=== PATIENT | male | born 1990 | race Caucasian/White ===

== ENCOUNTER 2019-12-04 04:09 | Emergency (ER) | payer OTHER, SELFPAY ==
[2019-12-04 04:10] VITALS: BP 130/70; PULSE 80; RESP 20; TEMP 37.1; O2SAT 98
[2019-12-04 04:40] LABS: Add Urine Microscopic? YES; Appearance Urine Sl Cloudy (Clear); Bilirubin Urine Negative (Negative); Blood Urine 1+ (Negative); Color Urine Yellow (Yellow); Glucose Urine UA Negative (Negative); Ketones Urine Trace (Negative); Leukocyte Esterase Ur 1+ LEU/UL (Negative); Nitrate Urine Negative (Negative); Protein Urine Trace (Negative); Specific Grav Ur >= 1.030 (1.010-1.020); Urobilinogen Urine 0.2 mg/dL (0.2-1.0)
[2019-12-04 04:46] LABS: Bacteria Urine 1+ /hpf; Squamous Epithelial Cell Urine Few /hpf (Few); WBC Urine 16-20 /hpf (0-3)
--- NOTE | 2019-12-04 05:05 | ED.MALEGU ---
HPI - Male Genitourinary General Chief complaint: Urogenital-Male Stated complaint: URINE RETENTION Source: patient History of Present Illness HPI Narrative: 28-year-old male presents with dysuria, burning and hesitancy with no high risk sexual activity currently no suprapubic tenderness no flank tenderness no fever or chills no nausea vomiting no diarrhea constipation. Complaint: dysuria Onset (ago): day(s) Duration: constant Severity: moderate Quality: burning Relieving factors: none Exacerbating factors: none Associated symptoms: Reports dysuria Related Data Home Medications Medication Instructions Recorded Confirmed buprenorphine-naloxone 1 tablet SUBLINGUAL DAILY 12/04/19 12/04/19 Allergies Allergy/AdvReac Type Severity Reaction Status Date / Time No Known Allergies Allergy Verified 12/04/19 04:41 Review of Systems Review of Systems: All systems reviewed & are unremarkable except as noted in HPI and below PMFSH Past Medical History Medical History Patient denies medical problems Exam Const: General: no acute distress and alert Orientation/consciousness: oriented to person and patient oriented x3 HENMT: Head: normal to inspection Eyes: Conjunctivae: conjunctivae normal Neck: Neck: normal visual inspection and no lymphadenopathy Chest: Chest palpation & inspection: normal inspection of the chest Resp: Effort & Inspection: normal respiratory effort Cardio: Rate: regular rate Rhythm: regular rhythm GI: GI Palp: Yes Soft to palpation : Testes: Testes normal Urinary Catheter: Urinary Catheter: urine clear Back/Spine/Pelvis: Back: no CVA tenderness Skin: General skin exam: normal color Rashes: no rashes Neuro: General: patient oriented x3 Extrem: General: normal to inspection Psych: Mental Status: mental status grossly normal Course Vital Signs Vital signs: Vital Signs Temperature 37.1 C 12/04/19 04:10 Pulse Rate 80 12/04/19 04:10 Respiratory Rate 20 12/04/19 04:10 Blood Pressure 130/70 12/04/19 04:10 Pulse Oximetry 98 12/04/19 04:10 Temperature 37.1 C 12/04/19 04:10 Pulse Rate 80 12/04/19 04:10 Respiratory Rate 20 12/04/19 04:10 Blood Pressure 130/70 12/04/19 04:10 Pulse Oximetry 98 12/04/19 04:10 MDM - Male Genitourinary Lab Data Labs: Lab Results 12/04/19 Range/Units 04:36 Urine Color Yellow (Yellow) Urine Appearance Sl cloudy A (Clear) Urine pH 6.0 (5.0-8.0) Ur Specific [place] >= 1.030 H (1.010-1.020) Urine Protein Trace H (Negative) Urine Glucose (UA) Negative (Negative) Urine Ketones Trace H (Negative) Ur Blood (Man) 1+ H (Negative) Urine Nitrate Negative (Negative) Urine Bilirubin Negative (Negative) Urine Urobilinogen 0.2 (0.2-1.0) mg/dL Leukocyte Esterase Rfl 1+ H (Negative) MIKAL/UL Urine RBC 3-5 H (0-2) /hpf Urine WBC 16-20 H (0-3) /hpf Ur Squamous Epith Cells Few (Few) /hpf Urine Bacteria 1+ H (None) /hpf Urine Characteristics Cloudy Critical Care Time Critical Care Time Critical Care Time: No Discharge Plan Discharge Clinical Impression: UTI (urinary tract infection) Patient Disposition: Home, Self-Care Condition: Stable Instructions: Antibiotic Form, Urinary Tract Infection in Men (ED) Additional Instructions: Return emergency department if unable to pass urine, take medicine as prescribed otherwise keep scheduled appointment with primary care physician for further evaluation and treatment. Prescriptions: New sulfamethoxazole-trimethoprim [Bactrim DS] 800-160 mg tablet 1 tablet PO Q12H Qty: 14 RF: 0 tamsulosin [Flomax] 0.4 mg capsule 0.4 mg PO DAILY Qty: 7 RF: 0 No Action buprenorphine-naloxone 8-2 mg tablet, sublingual 1 tablet SUBLINGUAL DAILY RF: 0 Follow-up/Referrals: UNKNOWN,DOCTOR [Primary Care Provider] - Ti
== END 2019-12-04 05:12 | disposition home or self-care (01) ==
PROVIDERS: Emergency Provider Emergency Medicine
DX: N39.0 Urinary tract infection, site not specified (principal)
CPT/HCPCS: 81001; 87086; 87088; 99283

== ENCOUNTER 2020-08-16 17:44 | Emergency (ER) | payer OTHER, SELFPAY ==
[2020-08-16 18:06] VITALS: BP 127/79; PULSE 82; RESP 20; TEMP 36.7; O2SAT 100
[2020-08-16 18:09] LABS: Add Urine Microscopic? NO; Appearance Urine Clear (Clear); Bilirubin Urine Negative (Negative); Blood Urine Negative (Negative); Color Urine Yellow (Yellow); Glucose Urine UA Negative (Negative); Ketones Urine Negative (Negative); Leukocyte Esterase Ur Negative LEU/UL (Negative); Nitrate Urine Negative (Negative); Protein Urine Negative (Negative); Urobilinogen Urine 0.2 mg/dL (0.2-1.0)
--- NOTE | 2020-08-16 18:16 | ED.MALEGU ---
HPI - Male Genitourinary General Chief complaint: Urogenital-Male Stated complaint: trouble/pain urinating Source: patient Mode of arrival: ambulatory Limitations: no limitations History of Present Illness HPI Narrative: this is a 29-year-old male with dysuria and suprapubic tenderness with no hematuria no fever chills no flank pain no nausea vomiting, denies any chest pain or shortness of breath no suprapubic tenderness. No high risk sexual activity contacts. Complaint: dysuria Onset (ago): day(s) Duration: constant Severity: moderate Quality: burning Related Data Home Medications Medication Instructions Recorded Confirmed buprenorphine-naloxone 1 tablet SUBLINGUAL DAILY 12/04/19 12/04/19 Allergies Allergy/AdvReac Type Severity Reaction Status Date / Time No Known Allergies Allergy Verified 08/16/20 18:12 Review of Systems Review of Systems: All systems reviewed & are unremarkable except as noted in HPI and below PMFSH Past Medical History Medical History (Updated 08/16/20 @ 18:18 by Dennys Li MD) Patient denies medical problems Social History Social History Gender identity (if verbalized by the patient): Male Exam Const: General: no acute distress HENMT: Head: normal to inspection Eyes: Pupils: Equal, round and reactive pupils present Neck: Neck: normal visual inspection Chest: Chest palpation & inspection: normal inspection of the chest Resp: Effort & Inspection: normal respiratory effort Auscultation: clear to auscultation bilaterally Cardio: Rate: regular rate Rhythm: regular rhythm GI: GI Palp: Yes Soft to palpation : Male General Exam: Yes normal external exam Urinary Catheter: Urinary Catheter: patent and draining Back/Spine/Pelvis: Back: no CVA tenderness Skin: General skin exam: normal color Rashes: no rashes Neuro: General: patient oriented x3, moves all extremities, no meningeal signs and no focal motor deficits Extrem: General: normal to inspection and no pedal edema Psych: Appearance: grossly normal Mental Status: mental status grossly normal Affect: normal affect Course Course Emergency Course: Reviewed UA with patient and UA showed no active urinary tract infection, explained that possibility of prostatitis and will start the patient on Bactrim and advised to follow with his primary care doctor. Vital Signs Vital signs: Vital Signs Temperature 36.7 C 08/16/20 18:06 Pulse Rate 82 08/16/20 18:06 Respiratory Rate 20 08/16/20 18:06 Blood Pressure 127/79 08/16/20 18:06 Pulse Oximetry 100 08/16/20 18:06 Temperature 36.7 C 08/16/20 18:06 Pulse Rate 82 08/16/20 18:06 Respiratory Rate 20 08/16/20 18:06 Blood Pressure 127/79 08/16/20 18:06 Pulse Oximetry 100 08/16/20 18:06 MDM - Male Genitourinary Lab Data Labs: Lab Results 08/16/20 Range/Units 18:05 Urine Color Yellow (Yellow) Urine Appearance Clear (Clear) Urine pH 7.0 (5.0-8.0) Ur Specific [place] 1.020 (1.010-1.020) Urine Protein Negative (Negative) Urine Glucose (UA) Negative (Negative) Urine Ketones Negative (Negative) Ur Blood (Man) Negative (Negative) Urine Nitrate Negative (Negative) Urine Bilirubin Negative (Negative) Urine Urobilinogen 0.2 (0.2-1.0) mg/dL Leukocyte Esterase Rfl Negative (Negative) MIKAL/UL Critical Care Time Critical Care Time Critical Care Time: No Discharge Plan Discharge Clinical Impression: Prostatitis Patient Disposition: Home, Self-Care Condition: Stable Instructions: Antibiotic Form, Prostatitis (ED) Additional Instructions: Take medicine as prescribed and follow-up with primary care physician within 1 to 2 weeks for further evaluation and treatment. Prescriptions: New sulfamethoxazole-trimethoprim [Bactrim DS] 800-160 mg tablet 1 tablet PO Q12H Qty: 20 RF: 0 No Action
[2020-08-16 18:49] VITALS: PULSE 80; RESP 20; O2SAT 100
== END 2020-08-16 18:55 | disposition home or self-care (01) ==
PROVIDERS: Emergency Provider Emergency Medicine
DX: N41.9 Inflammatory disease of prostate, unspecified (principal)
CPT/HCPCS: 81003; 99283; A9270

== ENCOUNTER 2021-02-04 16:04 | Emergency (ER) | payer OTHER, SELFPAY ==
[2021-02-04 16:30] VITALS: BP 120/80; PULSE 78; RESP 18; TEMP 37; O2SAT 95
--- NOTE | 2021-02-04 16:38 | ED.WOUNDLAC ---
HPI - Wound/Laceration General Chief Complaint: Wound/Laceration Stated Complaint: cyst on back of neck Source: patient Mode of arrival: ambulatory Limitations: no limitations History of Present Illness HPI narrative: This is 30-year-old male that presents with abscess located on his left upper back area there is some drainage, currently it is fluctuant with no fever or chills the area is warm and tender to touch with no shortness of breath no chest pain. Onset (ago): day(s) Location: back Related Data Home Medications Medication Instructions Recorded Confirmed buprenorphine-naloxone 1 tablet SUBLINGUAL DAILY 12/04/19 12/04/19 Allergies Allergy/AdvReac Type Severity Reaction Status Date / Time No Known Allergies Allergy Verified 08/16/20 18:12 Review of Systems Review of Systems: All systems reviewed & are unremarkable except as noted in HPI and below PMFSH Past Medical History Medical History (Updated 02/04/21 @ 16:42 by Dennys Li MD) Patient denies medical problems Social History Social History Gender identity (if verbalized by the patient): Male Exam Const: General: no acute distress and alert Orientation/consciousness: patient oriented x3 HENMT: Head: normal to inspection Eyes: Conjunctivae: conjunctivae normal Pupils: Equal, round and reactive pupils present Neck: Neck: normal visual inspection, no lymphadenopathy and no meningeal signs Chest: Chest palpation & inspection: normal inspection of the chest Resp: Effort & Inspection: normal respiratory effort Auscultation: clear to auscultation bilaterally Cardio: Rate: regular rate Rhythm: regular rhythm Back/Spine/Pelvis: Back: no CVA tenderness Skin: Other: Fluctuant area left upper back about 3cm in diameter Neuro: General: patient oriented x3 and moves all extremities Speech: normal speech Extrem: General: normal to inspection Psych: Mental Status: mental status grossly normal Course Course Emergency Course: area was prepped with some Betadine an 11 blade used to make a little hole and then the abscess was drained and culture taken. Procedures Abscess I/D back: Date of Incision: 02/04/21 Time of Incision: 16:41 Side (if applicable): left Technique: incised with #11 blade Amount of fluid expressed (mL): 5 Irrigation: No Packing used?: none I&D Results: Pus and Blood Complications: pain Critical Care Time Critical Care Time Critical Care Time: No Discharge Plan Discharge Clinical Impression: Abscess Patient Disposition: Home, Self-Care Condition: Stable Instructions: Antibiotic Form, Abscess (ED) Additional Instructions: follow-up with primary care physician in 1 to 2 weeks if symptoms persist or worsen. Otherwise take medicine as prescribed. Prescriptions: New amoxicillin-pot clavulanate [Augmentin] 875-125 mg tablet 1 tablet PO Q12H Qty: 20 RF: 0 mupirocin 2 % ointment 1 applic topical TID 7 Days Qty: 15 RF: 0 No Action buprenorphine-naloxone 8-2 mg tablet, sublingual 1 tablet SUBLINGUAL DAILY RF: 0 sulfamethoxazole-trimethoprim [Bactrim DS] 800-160 mg tablet 1 tablet PO Q12H Qty: 14 RF: 0 tamsulosin [Flomax] 0.4 mg capsule 0.4 mg PO DAILY Qty: 7 RF: 0 sulfamethoxazole-trimethoprim [Bactrim DS] 800-160 mg tablet 1 tablet PO Q12H Qty: 20 RF: 0 Follow-up/Referrals: Jose Antonio,[facility]shaw [Primary Care Provider] - Time of Disposition: 16:43
[2021-02-04 16:46] VITALS: BP 130/80; PULSE 88; RESP 18; TEMP 36.6; O2SAT 95
--- NOTE | 2021-02-04 16:50 | PC.NURSE ---
1630 area cleaned with betadine. 1635 lanced area, culture collected. 1648 neosporin dressing applied
== END 2021-02-04 16:54 | disposition home or self-care (01) ==
PROVIDERS: Emergency Provider Emergency Medicine; PCP Physician Assistant
DX: L02.212 Cutaneous abscess of back [any part, except buttock and flank] (principal)
CPT/HCPCS: 10060; 87070; 87205; 99283

== ENCOUNTER → 2021-05-13 00:23 | Outpatient (CLI) | payer OTHER, SELFPAY ==
[2021-05-13 18:39] LABS: SARS-CoV-2 RNA PCR Negative
== END ==
PROVIDERS: PCP Physician Assistant; Visit Provider Urology
DX: Z01.812 Encounter for preprocedural laboratory examination (principal); Z20.822 Contact with and (suspected) exposure to COVID-19
CPT/HCPCS: C9803; U0003; U0005

== ENCOUNTER 2021-05-16 01:02 | Day surgery (SDC) | payer OTHER, SELFPAY ==
--- NOTE | 2021-05-09 07:28 | P.HP_ITS ---
History of Present Illness History of Present Illness Consent: Risks, benefits, and alternatives have been discussed and questions answered. Patient agrees to proceed with procedure. Chief complaint: urethral stricture Narrative: Prabhjot Lebron is a 30 year old male her recently saw with complaints of atypical intermittent right flank pain and recurrent obstructive voiding symptoms. He reported having been seen and ER is on 2 prior occasions where urethral dilatation was undertaken in the ER. He never previously seen a urologist. CT scan of the abdomen and pelvis without contrast he failed a so ureteral or renal calculi and there has been no evidence of upper tract obstruction. Examination consistent with urethral meatal stenosis. Now presents for cystoscopy with urethral dilatation and right retrograde pyelography. Review of Systems Cardiovascular: Cardiovascular: Denies chest pain, Denies lightheadedness, Denies palpitations and Denies dyspnea Respiratory: Respiratory: Denies dyspnea Gastrointestinal: Gastrointestinal: Denies diarrhea, Denies nausea and Denies vomiting Genitourinary: Genitourinary: Denies hematuria, Denies dysuria, Reports flank pain, Reports urinary frequency and Reports urinary hesitancy Endocrine: Endocrine: Denies palpitations PMFSH Past Medical History Medical History (Updated 05/09/21 @ 07:30 by Andres Gutierres MD) Patient denies medical problems Social History Social History Gender identity (if verbalized by the patient): Male Meds Home Medications and Allergies Home Medications Medication Instructions Recorded Confirmed Type buprenorphine-naloxone 1 tablet SUBLINGUAL DAILY 12/04/19 12/04/19 History sulfamethoxazole-trimethoprim 1 tablet PO Q12H #14 tablet 12/04/19 Rx [Bactrim DS] tamsulosin [Flomax] 0.4 mg PO DAILY #7 cap 12/04/19 Rx sulfamethoxazole-trimethoprim 1 tablet PO Q12H #20 tablet 08/16/20 Rx [Bactrim DS] amoxicillin-pot clavulanate 1 tablet PO Q12H #20 tablet 02/04/21 Rx [Augmentin] mupirocin 1 applic TOPICAL TID 7 Days #15 g 02/04/21 Rx Allergies Allergy/AdvReac Type Severity Reaction Status Date / Time No Known Allergies Allergy Verified 08/16/20 18:12 Exam Const: General: no acute distress Resp: Effort & Inspection: normal respiratory effort GI: Inspection: non-distended GI Palp: No abdominal tenderness and No Guarding due to palpation present (GI) Auscultation: normal bowel sounds : Meatus: stenotic Assessment and Plan Assessment and plan (1) Right flank pain: Code(s): R10.9 - Unspecified abdominal pain Status: Acute (2) Meatal stenosis: Status: Acute Assessment and Plan: * Cystoscopy, urethral dilatation with right retrograde pyelography
[2021-05-14 14:54] VITALS: BMI 24.4
--- NOTE | ~2021-05-16 | XR_ITS ---
EXAMINATION: XR retrograde pyelogram RT EXAM DATE: 05/16/2021 08:51 INDICATION: Right-sided retrograde. TECHNIQUE: Fluoroscopy used during XR retrograde pyelogram RT performed by Dr. Andres Gutierres MD , urologist. The radiologist Samuel Beverly M.D. dictating this report of the image(s) available was no t present for the procedure. Total fluoroscopic time of 61 seconds. The DAP for this procedure was 800 radcm2. A total of 94 images sent to PACS from the exam. Cine run(s) available for review. FINDINGS: Right ureter was cannulated, injected. There were several fillings of the renal pelvis/UPJ , could be injected gas. Correlate with procedure note. IMPRESSION: Fluoroscopy used during XR retrograde pyelogram RT. Reviewed, dictated and finalized at location B.
--- NOTE | 2021-05-16 06:01 | WPDHPUPDATE1 ---
History and Physical Update Update Date/Time: 05/16/21 06:01 History and Physical has been reviewed, including an updated exam of the patient. There are NO changes in the patient's condition. Risks, benefits, and alternatives have been discussed and questions answered. Patient agrees to proceed with procedure.
[2021-05-16 06:31] VITALS: BP 111/79; PULSE 74; RESP 20; TEMP 36.8; O2SAT 100
[2021-05-16] MEDS: LACTATED RINGERS 1,000 ML 30 ML IV CONT (06:50)
--- NOTE | 2021-05-16 07:07 | P.PNAN_ITS ---
Anes - Initial Pre Proc Eval Procedure: Operation Date: 05/16/21 08:30 Proposed Procedures p Cystoscopy, Urethral Dilatation, Right Retrograde Pyelogram - Andres Gutierres MD Date/Time: 05/16/21 07:07 Surgeon: Andres Gutierres MD Pre Op Diagnosis: urethral stricture Patient Data Age: 30 Gender: M Height: 1.8 m Weight: 79.5 kg Allergies Allergy/AdvReac Type Severity Reaction Status Date / Time No Known Allergies Allergy Verified 05/16/21 06:43 Home Medications Medication Instructions Recorded Confirmed Type buprenorphine-naloxone 1 tablet SUBLINGUAL DAILY 12/04/19 05/16/21 History Patient hx anesthesia problems: none Family hx anesthesia problems: none [facility] Past Medical History Medical History (Updated 05/09/21 @ 07:30 by Andres Gutierres MD) Patient denies medical problems Social History Social History (Updated 05/16/21 @ 07:07 by Nura Silver DO) Smoking packs per day: 1 Smoking cigarettes per day: 20.0 Years smoked: 10 Smoking pack-years: 10.00 Smoking status: Current every day smoker Tobacco type: cigarettes Alcohol intake: current Substance use: current Substance use type: marijuana Other substance usage details: Every night. 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 Living arrangements: with family Gender identity (if verbalized by the patient): Male Spiritual care concerns: No Anes - Eval Final PreProcedure Day of Procedure 05/16/21 07:07 Patient weight: normal Heart: regular rate and rhythm Lungs: clear to auscultation and normal air movement Airway: Mallampati scale class II Neurological: alert and oriented Last oral intake: >/= 8 hours ASA classification: III Emergent: no Anesthetic plan: proceed Anesthesia type and monitoring: general LMA and standard monitoring Informed Consent: The patient's anesthetic plan and its attendant risks and benefits were discussed with the patient/family/POA. Questions were solicited and answers provided to the satisfaction of the patient/family/POA.
[2021-05-16] MEDS: ceFAZolin 2 GM/D5W 50 ML 2 GM/50 ML BAG IVPB (08:20)
[2021-05-16] MEDS: LIDOCAINE HCL 2% GEL UROJET 10 ML PKG MUCOUS MEM (08:34)
--- NOTE | 2021-05-16 08:55 | P.OP_ITS ---
Procedure Note - Detailed Date of Procedure 05/16/21 Pre-op Diagnosis Urethral stricture Post-op Diagnosis same Procedure Performed 1. Cystoscopy with urethral dilatation 2. Right retrograde pyelogram Surgeon Andres Gutierres MD Anesthesia MAC Description of Procedure patient is brought to the operative suite was prepped draped in routine sterile fashion while in a dorsal lithotomy position. 2% xylocaine jelly was introduced inter urethral E and systemic sedation is administered per the anesthesia de partment. This is a challenging case because the patient has a very tight meatal stenosis with a fossa navicular stricture and a small caliber urethra throughout. Sensation was able to dilate the more distal strictures with Isabela sounds to allow passage of a flexible cystoscope and then advanced a 0.035 in glidewire into his bladder. Then dilated the entire urethra with an implants dilators from 8 F to 18 F. bladder was endoscopically normal without foreign body. I performed a right retrograde pyelogram using an angiographic catheter that had been placed over 0.035 in glidewire. Retrograde pyelogram for was no points of obstruction or other identifiable pathology. Scopes and wires removed. The patient bladder was emptied with a 14 F catheter he was taken to the recovery room in good condition. Estimated Blood Loss 0 Drains No Packing No Pathology none sent Complications No immediate complications Condition stable Disposition PACU
[2021-05-16 08:59] VITALS: BP 113/67; PULSE 63; RESP 16; O2SAT 97
[2021-05-16 09:30] VITALS: BP 110/76; PULSE 50; RESP 16
--- NOTE | 2021-05-16 09:42 | SUR.PHASEII ---
0920; PT AWAKE AND ALERT. DENIES PAIN. UP TO RECLINER. GIVEN GLASSES.
[2021-05-16 10:00] VITALS: BP 112/77; PULSE 52; RESP 16
== END 2021-05-16 10:23 | disposition home or self-care (01) ==
PROVIDERS: PCP Physician Assistant; Visit Provider Urology
PROC: (CPT 52352; principal; 2021-05-16 08:30)
DX: N35.911 Unspecified urethral stricture, male, meatal (principal); F17.210 Nicotine dependence, cigarettes, uncomplicated; F12.90 Cannabis use, unspecified, uncomplicated
CPT/HCPCS: 52281; 74420; A9270; C1769; C1887; C9803; J0690; J2250; J2704; J7120; Q9966; U0003; U0005

== ENCOUNTER 2021-12-08 17:06 | Emergency (ER) | payer OTHER, SELFPAY ==
[2021-12-08 17:40] VITALS: BP 142/84; PULSE 79; RESP 16; TEMP 36.2; O2SAT 99
--- NOTE | 2021-12-08 17:53 | ED.SKABFB ---
HPI - Skin/Abscess/Foreign Bdy General Chief complaint: Unspecified Stated complaint: infection right side of face Time Seen by Provider: 12/08/21 17:55 Source: patient and RN notes reviewed Mode of arrival: ambulatory Limitations: no limitations History of Present Illness Onset (ago): day(s) (1) Location: face (right lower jaw) Severity: moderate Quality: aching and dull Pain Consistency: constant Relieving factors: none Exacerbating factors: none Context: none Associated symptoms: denies other symptoms and other ( Denies dental pain But has had mild dry mouth) Treatments prior to arrival: none Related Data Home Medications Medication Instructions Recorded Confirmed buprenorphine-naloxone 1 tablet SUBLINGUAL DAILY 12/04/19 12/08/21 Allergies Allergy/AdvReac Type Severity Reaction Status Date / Time No Known Allergies Allergy Verified 12/08/21 18:00 Review of Systems Review of Systems: All systems reviewed & are unremarkable except as noted in HPI and below Constitutional: Constitutional: Denies chills and Denies fever(s) PMFSH Past Medical History Medical History (Updated 12/08/21 @ 18:27 by Christopher Campuzano MD) Patient denies medical problems Social History Social History Smoking packs per day: 1 Smoking cigarettes per day: 20.0 Years smoked: 10 Smoking pack-years: 10.00 Smoking status: Current every day smoker Tobacco type: cigarettes Alcohol intake: current Substance use: current Substance use type: marijuana Other substance usage details: Every night. 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 Gender identity (if verbalized by the patient): Male Spiritual care concerns: No Exam Const: General: healthy appearing, no acute distress and alert Nutritional Appearance: well nourished Orientation/consciousness: patient oriented x3 HENMT: Head: normal to inspection, normocephalic and atraumatic Ears: hearing grossly normal bilaterally and external ears normal General nose exam: Normal external nose present Face and sinus: Facial tenderness on exam of face and sinuses on the right (parotid) mandible and angle of jaw Mouth: Yes Normal oral and palatal mucosa present, Yes Normal salivary glands and ducts present and Yes moist mucous membranes Throat: posterior oropharynx normal Eyes: Conjunctivae: conjunctivae normal Pupils: Equal, round and reactive pupils present EOM: EOMs intact bilaterally Neck: Neck: lymphadenopathy right preauricular soft, mobile and tender Resp: Effort & Inspection: normal respiratory effort Auscultation: clear to auscultation bilaterally Cardio: Rate: regular rate Rhythm: regular rhythm GI: Auscultation: normal bowel sounds Back/Spine/Pelvis: Cervical Spine: cervical ROM normal Thoracic/Lumbar Spine: thoraco-lumbar ROM normal Skin: General skin exam: normal color Rashes: no rashes Neuro: General: patient oriented x3, moves all extremities, no focal motor deficits and CN's II-XI intact bilaterally Speech: normal speech Gait exam (Neuro): Normal gait present Extrem: General: normal to inspection and no clubbing, cyanosis or edema Psych: Appearance: grossly normal and well kempt Mental Status: mental status grossly normal Affect: normal affect Attitude: cooperative Thought content: Yes Normal thought content present Discharge Plan Discharge Clinical Impression: Acute parotitis Patient Disposition: Home, Self-Care Condition: Stable Instructions: Antibiotic Form, Adenitis (ED) Additional Instructions: Warm compresses 3 to 4 times a day as needed. Tylenol and or Motrin as needed. Prescriptions: New amoxicillin-pot clavulanate 875-125 mg tablet 1 tablet PO Q12H Qty: 20 RF: 0 No Action buprenorphine-naloxone 8-2 mg tablet, sublingual 1 tablet SUBLINGUAL DAILY RF: 0 Follow-up/Referrals: Jose Antonio,[facility] Bradshaw [Primary Care Provider] - Time of Disposition
[2021-12-08] MEDS: AMOXICILLIN/CLAVULANATE K 875-125 MG TAB 1 TABLET PO (18:33)
== END 2021-12-08 18:35 | disposition home or self-care (01) ==
PROVIDERS: Emergency Provider Emergency Medicine; PCP Physician Assistant
DX: K11.21 Acute sialoadenitis (principal)
CPT/HCPCS: 99283; A9270

== ENCOUNTER 2022-04-09 14:37 | Emergency (ER) | payer OTHER, SELFPAY ==
[2022-04-09 14:45] VITALS: BP 126/83; PULSE 72; RESP 20; TEMP 36.4; O2SAT 98
--- NOTE | 2022-04-09 15:03 | ED.DENTAL ---
HPI - Dental/Oral General Chief complaint: Dental/Oral Stated complaint: possible infected tooth Time Seen by Provider: 04/09/22 15:03 Source: patient History of Present Illness HPI Narrative: 31-year-old male presents to the ER with right lower jaw pain /dental pain since yesterday. Complaint: tooth pain Location: Tooth # ( Thirty, 31) Onset (ago): day(s) ( started yesterday) Duration: constant Severity: moderate Relieving factors: nothing Exacerbating factors: cold and heat Context: history of dental caries Treatment prior to arrival: none Related Data Home Medications Medication Instructions Recorded Confirmed buprenorphine 8 mg-naloxone 2 mg 1 tablet sublingual DAILY 12/04/19 04/09/22 sublingual tablet Allergies Allergy/AdvReac Type Severity Reaction Status Date / Time No Known Allergies Allergy Verified 12/08/21 18:00 Review of Systems Review of Systems: All systems reviewed & are unremarkable except as noted in HPI and below Constitutional: Constitutional: Reports as per HPI and Reports no additional constitutional complaints Eyes: Eyes: Reports as per HPI and Reports no additional eye complaints ENT: Reports system reviewed and no additional complaints, except as documented and Reports as per HPI Comments: right lower dental pain Cardiovascular: Cardiovascular: Reports as per HPI and Reports no additional cardiovascular complaints Respiratory: Respiratory: Reports as per HPI and Reports no additional respiratory complaints Gastrointestinal: Gastrointestinal: Reports as per HPI and Reports no additional gastrointestinal complaints Genitourinary: Genitourinary: Reports no additional male genitourinary complaints and Reports as per HPI Musculoskeletal: Musculoskeletal: Reports no additional musculoskeletal complaints and Reports as per HPI Integumentary/Breasts: Skin/Breast: Reports system reviewed and no additional complaints, except as docu and Reports as per HPI Neurologic: Reports system reviewed and no additional complaints, except as documented and Reports as per HPI Psychiatric: Psychiatric: Reports no additional psychiatric complaints and Reports as per HPI Endocrine: Endocrine: Reports no additional endocrine complaints and Reports as per HPI Hematologic/Lymphatic: Hematologic/Lymphatic: Reports no additional hematologic/lymphatic complaints and Reports as per HPI Allergic/Immunologic: Allergic/Immunologic: Reports no additional allergic/immunologic complaints and Reports as per HPI PMF Past Medical History Medical History (Updated 04/09/22 @ 15:28 by Jameel Tolliver MD) Patient denies medical problems Social History Social History Smoking packs per day: 1 Smoking cigarettes per day: 20.0 Years smoked: 10 Smoking pack-years: 10.00 Smoking status: Current every day smoker Tobacco type: cigarettes Alcohol intake: current Substance use: current Substance use type: marijuana Other substance usage details: Every night. 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 Gender identity (if verbalized by the patient): Male Spiritual care concerns: No Exam Const: General: no acute distress Nutritional Appearance: well nourished Orientation/consciousness: patient oriented x3 Limitations: no limitations HENMT: Head: normal to inspection Ears: external ears normal General nose exam: Normal external nose present Face and sinus: normal facial exam Mouth: Yes Normal oral and palatal mucosa present Teeth and gingiva: dentition normal ( All 1st and 2nd molars upper /lower and bilaterally are carious) Throat: posterior oropharynx normal Eyes: Conjunctivae: conjunctivae normal Pupils: Equal, round and reactive pupils present EOM: EOMs intact bilaterally Direct Ophthalmoscopy: no photophobia Neck: Neck: normal visual inspection, no lymphadenopathy and no meningeal signs Chest: Chest palpation & inspectio
[2022-04-09 17:38] VITALS: BP 123/83; PULSE 72; RESP 20; TEMP 36.4; O2SAT 98
== END 2022-04-09 15:45 | disposition home or self-care (01) ==
PROVIDERS: Emergency Provider Internal Medicine Critical Care Medicine; PCP Nurse Practitioner Family
DX: K08.89 Other specified disorders of teeth and supporting structures (principal)
CPT/HCPCS: 99283

== ENCOUNTER 2022-11-09 03:59 | Emergency (ER) | payer OTHER, SELFPAY ==
[2022-11-09 04:08] VITALS: BP 130/82; PULSE 71; RESP 20; TEMP 36.7; O2SAT 99
[2022-11-09] MEDS: CLINDAMYCIN HCL 150 MG CAP 600 MG PO (04:33)
--- NOTE | 2022-11-09 04:34 | ED.MALEGU ---
HPI - Male Genitourinary General Chief complaint: Urogenital-Male Stated complaint: unable to urinate Time Seen by Provider: 11/09/22 04:18 Source: patient Mode of arrival: ambulatory Limitations: no limitations History of Present Illness HPI Narrative: this is a 31-year-old male that presents with some assist at the at the tip of the urethra usually gets treated with antibiotic her some mild discomfort but no no dysuria no frequency no hematuria, no fever chills no flank pain no abdominal pain. Patient has seen a urologist in the past and usually gets antibiotics for the cyst. Complaint: penile discharge Onset (ago): day(s) Duration: constant Location: penis Severity: mild Quality: burning Related Data Home Medications Medication Instructions Recorded Confirmed buprenorphine 8 mg-naloxone 2 mg 1 tablet sublingual DAILY 12/04/19 11/09/22 sublingual tablet tamsulosin 0.4 mg capsule 0.4 mg PO DAILY 11/09/22 11/09/22 Allergies Allergy/AdvReac Type Severity Reaction Status Date / Time No Known Allergies Allergy Verified 12/08/21 18:00 Review of Systems Review of Systems: All systems reviewed & are unremarkable except as noted in HPI and below PMFSH Past Medical History Medical History (Updated 11/09/22 @ 04:40 by Dennys Li MD) Patient denies medical problems Social History Social History Smoking packs per day: 1 Smoking cigarettes per day: 20.0 Years smoked: 10 Smoking pack-years: 10.00 Smoking status: Current every day smoker Tobacco type: cigarettes Alcohol intake: current Substance use: current Substance use type: marijuana Other substance usage details: Every night. 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 Living arrangements: with family Gender identity (if verbalized by the patient): Male Spiritual care concerns: No Exam Const: General: cooperative, healthy appearing, comfortable, no acute distress and well developed HENMT: Head: normal to inspection Face and sinus: normal facial exam Mouth: Yes Normal oral and palatal mucosa present Throat: posterior oropharynx normal Eyes: General: appearance normal, both eyes and all related structures Neck: Neck: normal visual inspection, full ROM, no lymphadenopathy and no meningeal signs Chest: Chest palpation & inspection: normal inspection of the chest Resp: Effort & Inspection: normal respiratory effort Cardio: Jugular venous distension: no JVD Palpation: normal PMI Rate: regular rate Rhythm: regular rhythm GI: Inspection: normal to inspection : Male genitals images: 1. Small nonfluctuant nondraining cyst Urinary Catheter: Urinary Catheter: patent and draining Back/Spine/Pelvis: Back: no CVA tenderness Skin: General skin exam: normal color and no rashes or lesions noted Neuro: General: oriented to person, oriented to place and oriented to time Extrem: General: normal to inspection, full ROM and capillary refill normal Psych: Appearance: grossly normal Mental Status: mental status grossly normal Course Course Emergency Course: patient received a dose of p.o. clindamycin. Vital Signs Vital signs: Vital Signs Temperature 36.7 C 11/09/22 04:08 Pulse Rate 71 11/09/22 04:08 Respiratory Rate 20 11/09/22 04:08 Blood Pressure 130/82 11/09/22 04:08 Pulse Oximetry 99 11/09/22 04:08 Oxygen Delivery Room Air 11/09/22 04:08 Temperature 36.7 C 11/09/22 04:08 Pulse Rate 71 11/09/22 04:08 Respiratory Rate 20 11/09/22 04:08 Blood Pressure 130/82 11/09/22 04:08 Pulse Oximetry 99 11/09/22 04:08 Oxygen Delivery Room Air 11/09/22 04:08 MDM - Male Genitourinary Lab Data Labs: Urine Characteristics Cloudy Critical Care Time Critical Care Time Critical Care Time: No Discharge Plan Discharge Clinical Impression: Cyst
[2022-11-09 04:44] VITALS: BP 127/79; PULSE 87; RESP 18; TEMP 36.6; O2SAT 99
== END 2022-11-09 04:47 | disposition home or self-care (01) ==
PROVIDERS: Emergency Provider Emergency Medicine; PCP Nurse Practitioner Family
DX: N48.89 Other specified disorders of penis (principal); F17.210 Nicotine dependence, cigarettes, uncomplicated
CPT/HCPCS: 99283; A9270